=== PATIENT | female | born 1995 | race Hispanic/Latino ===

== ENCOUNTER 2021-01-26 10:31 | Observation (INO) | payer OTHER ==
[~2021-01-26] VITALS: Ht 162.6 cm; Wt 91.6 kg
[2021-01-26 11:01] LABS: BASOPHILS % 0.4 % (0.0-1.0); EOSINOPHILS # (AUTO) 0.2 (0.0-0.4); EOSINOPHILS % 1.8 % (0.0-6.0); HEMATOCRIT 39.3 % (34.2-44.1); HEMOGLOBIN 12.8 g/dL (12.0-16.0); LYMPHOCYTES # (AUTO) 3.1 (1.0-3.2); LYMPHOCYTES % 30.3 % (18.0-39.1); MEAN CORPUSCULAR HEMOGLOBIN 27.9 pg (28-32); MEAN CORPUSCULAR HGB CONC 32.6 g/dL (31-35); MEAN CORPUSCULAR VOLUME 85.6 fL (81-99); MONOCYTES # (AUTO) 0.6 (0.2-0.8); MONOCYTES % 5.9 % (4.4-11.3); NEUTROPHILS # (AUTO) 6.3 (2.1-6.9); NEUTROPHILS % 61.4 % (38.7-80.0); PLATELET COUNT 301 x10e3/uL (140-360); RED BLOOD COUNT 4.59 x10e6/uL (3.6-5.1); RED CELL DISTRIBUTION WIDTH 14.1 % (11.7-14.4)
[2021-01-26] MEDS ORDERED: PIPERACILLIN/TAZOBACTAM 3.375 GM in SODIUM CHLORIDE 0.9% 50ML 50 ML IV STA (11:04)
[2021-01-26 11:24] LABS: ALBUMIN 3.8 g/dL (3.5-5.0); ALBUMIN/GLOBULIN RATIO 1.2 (0.8-2.0); CALCIUM 9.6 mg/dL (8.4-10.2); CREATININE, SERUM 0.81 mg/dL (0.57-1.11)
[2021-01-26] MEDS ORDERED: DEXTROSE 50% SYRINGE 50 ML IV PRN (14:45)
[2021-01-26] MEDS ORDERED: ONDANSETRON HCL INJ 2MG/ML 2ML 2 MG/ML VIAL IV PRN (16:00)
[2021-01-26] MEDS: SODIUM CHLORIDE 0.9% 1000ML 1,000 ML IV SCH (16:26)
[2021-01-26] MEDS: Morphine 4mg Syringe 4 MG/ML INJ IV PRN ×2 (16:26→21:00)
[2021-01-26] MEDS: INSULIN LISPRO 100 UNIT/1 ML 3ML VIAL SQ SCH ×2 (16:30→19:58)
[2021-01-26 18:51] VITALS: BP 110/54
[2021-01-26 20:00] VITALS: BP 112/61
[2021-01-26 21:31] VITALS: BP 112/61
[2021-01-26] MEDS ORDERED: ATORVASTATIN CA10 MG PO (21:46)
[2021-01-26] MEDS ORDERED: METFORMIN HCL500 MG PO (21:47)
[2021-01-26 21:49] VITALS: BP 112/61
[2021-01-27] VITALS (7 sets, daily range): BP systolic 92–111; BP diastolic 49–62
[2021-01-27 04:26] LABS: CLARITY,URINE CLEAR (CLEAR); COLOR,URINE YELLOW (YELLOW); KETONES,URINE NEGATIVE (NEGATIVE); LEUKOCYTE ESTERASE ,URINE NEGATIVE (NEGATIVE); NITRITE,URINE NEGATIVE (NEGATIVE); PROTEIN,URINE DIPSTICK NEGATIVE (NEGATIVE); URINE UROBILINOGEN 0.2 mg/dL (0.2 - 1)
[2021-01-27 04:31] LABS: BACTERIA,URINE FEW /HPF; EPITHELIAL CELLS,URINE MODERATE /LPF; RBC,URINE 0-5 /HPF (0-5); WBC,URINE (MAN) 0-5 /HPF (0-5)
[2021-01-27] MEDS: SODIUM CHLORIDE 0.9% 1000ML 1,000 ML IV SCH ×4 (04:52→15:05)
[2021-01-27 06:05] LABS: BASOPHILS % 0.3 % (0.0-1.0); EOSINOPHILS # (AUTO) 0.3 (0.0-0.4); EOSINOPHILS % 2.8 % (0.0-6.0); HEMATOCRIT 35.1 % (34.2-44.1); HEMOGLOBIN 11.1 g/dL (12.0-16.0); LYMPHOCYTES % 47.2 % (18.0-39.1); MEAN CORPUSCULAR HEMOGLOBIN 27.8 pg (28-32); MEAN CORPUSCULAR HGB CONC 31.6 g/dL (31-35); MONOCYTES # (AUTO) 0.6 (0.2-0.8); MONOCYTES % 5.7 % (4.4-11.3); NEUTROPHILS # (AUTO) 4.7 (2.1-6.9); NEUTROPHILS % 43.8 % (38.7-80.0); PLATELET COUNT 262 x10e3/uL (140-360); RED BLOOD COUNT 3.99 x10e6/uL (3.6-5.1)
[2021-01-27] MEDS: Morphine 4mg Syringe 4 MG/ML INJ IV PRN ×2 (06:16→10:20)
[2021-01-27 06:59] LABS: ALBUMIN/GLOBULIN RATIO 1.2 (0.8-2.0); CALCIUM 7.9 mg/dL (8.4-10.2); CREATININE, SERUM 0.79 mg/dL (0.57-1.11); MAGNESIUM 1.9 MG/DL (1.3-2.1)
[2021-01-27 07:23] LABS: THYROID STIMULATING HORMONE 1.505 uIU/mL (0.350-4.940)
[2021-01-27] MEDS: INSULIN LISPRO 100 UNIT/1 ML 3ML VIAL SQ SCH ×4 (07:30→21:00)
[2021-01-27] MEDS ORDERED: METFORMIN HCL 500 MG TAB PO SCH (09:00)
[2021-01-27] MEDS ORDERED: BUPIVACAINE 0.25% 30ML SDV ONE (12:36)
[2021-01-27] MEDS ORDERED: FENTANYL CITRATE/PF 100MCG/2 ML INJ ONE ×2 (14:44→16:38)
[2021-01-27] MEDS ORDERED: Morphine 4mg Syringe 4 MG/ML INJ ONE (14:47)
[2021-01-27] MEDS: HYDROCODONE/APAP 7.5MG-325MG 1 EA TAB PO PRN ×2 (16:00→21:49)
[2021-01-27] MEDS ORDERED: SUCCINYLCHOLINE CHLORIDE 20 MG/ML 10ML VIAL ONE (16:30)
[2021-01-27] MEDS ORDERED: DEXAMETHASONE SOD PHOS INJ 4 MG/ML SDV ONE (16:30)
[2021-01-27] MEDS ORDERED: POVIDONE IODINE 0.05% 0.05 % ML PO ONE (16:30)
[2021-01-27] MEDS ORDERED: ROCURONIUM BROMIDE 10 MG/ML 5ML VIAL IV ONE (16:30)
[2021-01-27] MEDS ORDERED: LIDOCAINE HCL 2% LOCAL INJ 5 ML SDV VIAL INJ ONE (16:30)
[2021-01-27] MEDS ORDERED: KETOROLAC TROMETHAMINE 30 MG/ML VIAL ONE (16:30)
[2021-01-27] MEDS ORDERED: PROPOFOL IV EMULSION 10 MG/ML 20 ML VIAL ONE (16:30)
[2021-01-27] MEDS ORDERED: SEVOFLURANE INHAL SOLN 250 ML PEN BTL ONE (16:30)
[2021-01-27] MEDS ORDERED: ONDANSETRON HCL INJ 2MG/ML 2ML 2 MG/ML VIAL ONE (16:30)
[2021-01-27] MEDS ORDERED: MIDAZOLAM HCL 2 MG/2 ML VIAL ONE (16:38)
[2021-01-27] MEDS ORDERED: SIMETHICONE 80 MG CHEW PO ONE (20:30)
[2021-01-27] MEDS ORDERED: CEPACOL SORE THROAT LOZENGES PO PRN (20:30)
[2021-01-27] MEDS ORDERED: ACETAMINOPHEN 325 MG TAB PO PRN (20:30)
[2021-01-27] MEDS ORDERED: ACETAMIN/BUTALBITAL/CAFFEINE TAB PO PRN (20:30)
[2021-01-27] MEDS ORDERED: ATORVASTATIN 10 MG TAB PO SCH (21:00)
[2021-01-28] MEDS: KETOROLAC TROMETHAMINE 30 MG/ML VIAL IV PRN ×2 (00:14→07:29)
[2021-01-28] MEDS: SODIUM CHLORIDE 0.9% 1000ML 1,000 ML IV SCH ×2 (00:30→10:30)
[2021-01-28 00:39] VITALS: BP 112/66
[2021-01-28] MEDS: HYDROCODONE/APAP 7.5MG-325MG 1 EA TAB PO PRN ×2 (03:41→10:41)
[2021-01-28 05:16] VITALS: BP 102/54
[2021-01-28 06:36] LABS: BASOPHILS % 0.2 % (0.0-1.0); HEMATOCRIT 34.2 % (34.2-44.1); HEMOGLOBIN 11.3 g/dL (12.0-16.0); LYMPHOCYTES # (AUTO) 2.1 (1.0-3.2); MEAN CORPUSCULAR HEMOGLOBIN 28.3 pg (28-32); MEAN CORPUSCULAR VOLUME 85.7 fL (81-99); MONOCYTES # (AUTO) 0.5 (0.2-0.8); MONOCYTES % 4.6 % (4.4-11.3); NEUTROPHILS # (AUTO) 8.9 (2.1-6.9); NEUTROPHILS % 76.9 % (38.7-80.0); PLATELET COUNT 305 x10e3/uL (140-360); RED BLOOD COUNT 3.99 x10e6/uL (3.6-5.1); RED CELL DISTRIBUTION WIDTH 13.6 % (11.7-14.4)
[2021-01-28 07:15] LABS: ALBUMIN 3.2 g/dL (3.5-5.0); ALBUMIN/GLOBULIN RATIO 1.1 (0.8-2.0); ANION GAP 13.2 mmol/L (8-16); CALCIUM 8.3 mg/dL (8.4-10.2); CREATININE, SERUM 0.76 mg/dL (0.57-1.11); POTASSIUM 4.2 mmol/L (3.5-5.1)
[2021-01-28] MEDS: INSULIN LISPRO 100 UNIT/1 ML 3ML VIAL SQ SCH ×3 (07:30→15:58)
[2021-01-28 08:15] VITALS: BP 95/45
[2021-01-28] MEDS: ASCORBIC ACID 500 MG TAB PO SCH ×2 (09:49→16:44)
[2021-01-28 11:05] VITALS: BP 95/45
[2021-01-28 11:51] VITALS: BP 102/59
[2021-01-28 16:05] VITALS: BP 92/49
[2021-01-28] MEDS ORDERED: KEFLEX750 MG PO (16:42)
[2021-01-28] MEDS ORDERED: ASCORBIC ACID500 MG PO (16:42)
[2021-01-28] MEDS ORDERED: ACETAMINOPHEN325 M1 PO (16:42)
== END 2021-01-28 17:27 | disposition home or self-care (01) ==
LOC: ER 10:41 → ERHOLD 10:57 → MED/SURG2 18:20
PROVIDERS: ADMIT Internal Medicine; ATTEND Internal Medicine
DX: K80.12 Calculus of gallbladder with acute and chronic cholecystitis without obstruction (principal); K76.0 Fatty (change of) liver, not elsewhere classified; E11.9 Type 2 diabetes mellitus without complications; E66.9 Obesity, unspecified; Z20.822 Contact with and (suspected) exposure to COVID-19; Z79.4 Long term (current) use of insulin; K21.9 Gastro-esophageal reflux disease without esophagitis; Z68.35 Body mass index [BMI] 35.0-35.9, adult; I10 Essential (primary) hypertension
CPT/HCPCS: 36415 ×3; 47562; 76705; 80053 ×3; 80061; 81001; 82948 ×3; 83036; 83735 ×2; 84100 ×2; 84443; 84702; 85025 ×3; 88304; 94799 ×3; 99284; C1766; C9113 ×3; G0378 ×3; J0330; J1100; J1885 ×2; J2001; J2250; J2270 ×2; J2405 ×2; J2543; J2704; J3010; J7030 ×3; U0002